=== PATIENT | female | born 1955 | race Caucasian/White ===

== ENCOUNTER 2018-01-21 14:04 | Emergency (ER) | payer OTHER ==
[~2018-01-21] VITALS: Ht 157.5 cm; Wt 78.1 kg
[2018-01-21] MEDS ORDERED: NAPROSYN500 MG PO (15:29)
[2018-01-21] MEDS ORDERED: FLEXERIL10 MG PO (15:29)
[2018-01-21 15:59] VITALS: BP 126/77
== END 2018-01-21 16:01 | disposition home or self-care (01) ==
LOC: EME 14:04
DX: S00.93XA Contusion of unspecified part of head, initial encounter (principal); M62.838 Other muscle spasm; M54.2 Cervicalgia; S53.401A Unspecified sprain of right elbow, initial encounter; S43.401A Unspecified sprain of right shoulder joint, initial encounter; R42 Dizziness and giddiness; V49.40XA Driver injured in collision with unspecified motor vehicles in traffic accident, initial encounter; Y92.410 Unspecified street and highway as the place of occurrence of the external cause; M47.812 Spondylosis without myelopathy or radiculopathy, cervical region
CPT/HCPCS: 70450; 72125; 72128; 73030; 73080; 99281; 99284